=== PATIENT | female | born 1985 | race Caucasian/White ===

== ENCOUNTER 2019-11-09 12:29 | Emergency (ER) | payer OTHER ==
[2019-11-09] MEDS ORDERED: IV NORMAL SALINE 1,000ML 1,000 ML IV ONE (12:45)
[2019-11-09 12:51] VITALS: BP 156/91
--- NOTE | 2019-11-09 13:12 | PHYS DOC ---
Adult General Chief Complaint Chief Complaint: VAGINAL BLEEDING HPI HPI 34-year-old female presents with vaginal bleeding. The patient has been trying to get . She was about due for her cycle when she had some heavy bleeding with clots. She's not had this before. Some of it was a black color. She had some mild lower cramping, but stronger than her usual menstrual cramping. She took a urine test on Saturday which was negative. She is wants to make sure there is nothing to be concerned about or that she is . She denies fever or chills. She denies change in vaginal discharge, dysuria, or urinary frequency. Review of Systems Review of Systems Constitutional: Denies fever or chills [] Eyes: Denies change in visual acuity, redness, or eye pain [] HENT: Denies nasal congestion or sore throat [] Respiratory: Denies cough or shortness of breath [] Cardiovascular: No additional information not addressed in HPI [] GI: Denies abdominal pain, nausea, vomiting, bloody stools or diarrhea [] : Vaginal bleeding[] Musculoskeletal: Denies back pain or joint pain [] Integument: Denies rash or skin lesions [] Neurologic: Denies headache, focal weakness or sensory changes [] Endocrine: Denies polyuria or polydipsia [] All other systems were reviewed and found to be within normal limits, except as documented in this note. Current Medications Current Medications Current Medications Medications (Trade) Dose Ordered Sig/Naomy Start Time Stop Time Status Last Admin Dose Admin Sodium Chloride 1,000 ml @ 1,000 mls/hr 1X ONCE 11/09/19 12:45 11/09/19 13:44 Allergies Allergies Allergies Coded Allergies Type Severity Reaction Last Updated Verified No Known Drug Allergies 11/09/19 No Physical Exam Physical Exam Constitutional: Well developed, obese, well nourished, no acute distress, non- toxic appearance. [] HENT: Normocephalic, atraumatic, bilateral external ears normal, oropharynx moist, no oral exudates, nose normal. [] Eyes: PERRLA, EOMI, conjunctiva normal, no discharge. [] Neck: Normal range of motion, no tenderness, supple, no stridor. [] Cardiovascular:Heart rate regular rhythm, no murmur [] Lungs & Thorax: Bilateral breath sounds clear to auscultation [] Abdomen: Bowel sounds normal, soft, no tenderness, no masses, no pulsatile masses. [] Skin: Warm, dry, no erythema, no rash. [] Back: No tenderness, no CVA tenderness. [] Extremities: No tenderness, no cyanosis, no clubbing, ROM intact, no edema. [] Neurologic: Alert and oriented X 3, normal motor function, normal sensory function, no focal deficits noted. [] Psychologic: Affect normal, judgement normal, mood normal. [] EKG EKG [] Radiology/Procedures Radiology/Procedures [] Course & Med Decision Making Course & Med Decision Making Pertinent Labs and Imaging studies reviewed. (See chart for details) Patient's labs are unremarkable. Her urinalysis is negative for infection. Her urine test is negative. The patient may just be having unusual menses or she may have had a very early spontaneous . I cannot be certain of either. I have advised supportive care. If her symptoms continue she will follow[facility] with [facility]. She is stable for discharge at this time. [] Dragon Disclaimer Dragon Disclaimer This electronic medical record was generated, in whole or in part, using a voice recognition dictation system. Departure Departure: Impression: Primary Impression: Menorrhagia with regular cycle Disposition: HOME, SELF-CARE Condition: STABLE Referrals: MOIZ MENENDEZ (PCP) Patient Instructions: Menorrhagia, Gzhl-[id number] SAMY COOPER DO Nov 09, 2019 13:12
[2019-11-09 13:41] LABS: BASO # 0.1 x10^3/uL (0.0-0.2); BASO % 1 % (0-3); EOS # 0.4 x10^3/uL (0.0-0.7); EOS % 4 % (0-3); HEMATOCRIT 36.7 % (36.0-47.0); HEMOGLOBIN 12.4 g/dL (12.0-15.5); LYMPH # 3.4 x10^3/uL (1.0-4.8); LYMPH % 39 % (24-48); MEAN CORPUSCULAR HEMOGLOBIN 30 pg (25-35); MEAN CORPUSCULAR HGB CONC 34 g/dL (31-37); MEAN CORPUSCULAR VOLUME 89 fL (79-100); MONO # 0.6 x10^3/uL (0.0-1.1); MONO % 8 % (0-9); NEUT # 4.2 x10^3uL (1.8-7.7); NEUT % 49 % (31-73); PLATELET COUNT 314 x10^3/uL (140-400); RED BLOOD COUNT 4.14 x10^6/uL (3.50-5.40); RED CELL DISTRIBUTION WIDTH 13.9 % (11.5-14.5); WHITE BLOOD COUNT 8.7 x10^3/uL (4.0-11.0)
[2019-11-09 13:51] LABS: CALCIUM 8.8 mg/dL (8.5-10.1); CREATININE 0.8 mg/dL (0.6-1.0); GFR 81.2; POTASSIUM 4.2 mmol/L (3.5-5.1)
[2019-11-09 13:57] LABS: ALBUMIN 3.8 g/dL (3.4-5.0); ALBUMIN/GLOBULIN RATIO 0.9 (1.0-1.7); TOTAL BILIRUBIN 0.2 mg/dL (0.2-1.0); TOTAL PROTEIN 7.9 g/dL (6.4-8.2)
[2019-11-09 15:53] LABS: BACTERIA,URINE FEW /HPF (0-FEW); BILIRUBIN,URINE NEG (NEG); CLARITY,URINE CLOUDY; COLOR,URINE STRAW; GLUCOSE,URINE NEG (NEG); NITRITE,URINE NEG (NEG); SQUAMOUS EPITHELIAL CELL,UR MANY /LPF; UROBILINOGEN,URINE 0.2 mg/dL (0.2 mg/dL)
[2019-11-09 15:55] LABS: U PREG PATIENT NEGATIVE (NEG)
== END 2019-11-09 16:15 | disposition home or self-care (01) ==
LOC: ER 12:29
DX: N92.0 Excessive and frequent menstruation with regular cycle (principal)
CPT/HCPCS: 36415; 80053; 81001; 81025; 85025; 99284-25; J7030

== ENCOUNTER → 2020-06-03 | Outpatient (CLI) | payer OTHER ==
--- NOTE | 2020-06-03 12:33 | RAD ---
EXAM: ABDOMINAL ULTRASOUND. HISTORY: Epigastric abdominal pain. COMPARISON: None. FINDINGS: Sonographic evaluation of the abdomen was performed. The liver appears normal in parenchymal echotexture. There are no focal lesions. The spleen measures 9 cm. The gallbladder is surgically absent. The common duct measures 4 mm. The visualized portions of the pancreas reveal no abnormality. The right kidney measures 12.3 x 6.7 x 4.8 cm. Cortical thickness and echogenicity are preserved. There is no hydronephrosis. The left kidney measures 13.5 x 6.9 x 5.3 cm. Cortical thickness and echogenicity are preserved. There is no hydronephrosis. The visualized portions of the abdominal aorta and inferior vena cava are grossly patent and normal in caliber. IMPRESSION: 1. Unremarkable examination of the abdomen status post previous cholecystectomy. Electronically signed by: Glenn Gomez MD (06/03/2020 12:30 PM) [id number]
== END | disposition home or self-care (01) ==
LOC: US 07:53
PROVIDERS: ATTEND Internal Medicine Gastroenterology
DX: R10.13 Epigastric pain (principal); Z90.49 Acquired absence of other specified parts of digestive tract
CPT/HCPCS: 76700

== ENCOUNTER 2020-12-17 14:41 | Emergency (ER) | payer OTHER ==
[~2020-12-17] VITALS: Ht 167.6 cm; Wt 124.5 kg
[2020-12-17 14:50] VITALS: BP 143/96
[2020-12-17] MEDS ORDERED: IBUPROFEN 600 MG TABLET. PO ONE (15:15)
[2020-12-17] MEDS ORDERED: ACETAMINOPHEN 325 MG TABLET PO ONE (15:15)
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
--- NOTE | 2020-12-17 15:30 | RAD ---
2 views right humerus and 2 views right forearm HISTORY: Pain status post fall AP lateral views 2 views right humerus: The visualized osseous structures appear normal. 2 views right forearm: The visualized osseous structures appear normal. IMPRESSION: Negative examination. Electronically signed by: Austin Jennings III, MD (12/17/2020 3:28 PM) [facility]
--- NOTE | 2020-12-17 15:30 | RAD ---
2 views right humerus and 2 views right forearm HISTORY: Pain status post fall AP lateral views 2 views right humerus: The visualized osseous structures appear normal. 2 views right forearm: The visualized osseous structures appear normal. IMPRESSION: Negative examination. Electronically signed by: Austin Jennings III, MD (12/17/2020 3:28 PM) [facility]
[2020-12-17] MEDS ORDERED: IBUP600T16 PO (15:32)
== END 2020-12-17 15:40 | disposition home or self-care (01) ==
LOC: ER 14:41
DX: S40.021A Contusion of right upper arm, initial encounter (principal); M25.511 Pain in right shoulder; Z90.49 Acquired absence of other specified parts of digestive tract; Z98.890 Other specified postprocedural states; W18.39XA Other fall on same level, initial encounter; Y93.89 Activity, other specified; Y92.89 Other specified places as the place of occurrence of the external cause; Y99.8 Other external cause status
CPT/HCPCS: 73060; 73090; 81025; 99284